=== PATIENT | male | born 1985 | race American Indian/Alaskan Native ===

== ENCOUNTER 2025-06-16 12:05 | Emergency (ER) | payer OTHER ==
[~2025-06-16] VITALS: Ht 175.2 cm; Wt 79.4 kg
== END 2025-06-16 13:42 | disposition home or self-care (01) ==
LOC: ED 12:05
DX: S20.212A Contusion of left front wall of thorax, initial encounter (principal); S60.222A Contusion of left hand, initial encounter; S40.012A Contusion of left shoulder, initial encounter; S50.02XA Contusion of left elbow, initial encounter; W51.XXXA Accidental striking against or bumped into by another person, initial encounter; Y93.89 Activity, other specified; Y92.89 Other specified places as the place of occurrence of the external cause; Y99.8 Other external cause status